=== PATIENT | male | born 1945 | race Caucasian/White ===

== ENCOUNTER 2020-10-01 16:16 | Observation (INO) ==
[2020-10-01 17:07] LABS: Basophils % 0.5 %; Eosinophils # 0.3 K/mcL (0.0-0.6); Eosinophils % 3.8 %; Hemoglobin 14.6 g/dL (12.9-16.9); Immature Granulocytes % 0.6 % (0-4); Lymphocytes # 1.3 K/mcL (0.6-4.6); Lymphocytes % 14.6 %; Mean Corpuscular HGB Conc 32.4 g/dL (31.6-35.5); Mean Corpuscular Hemoglobin 29.7 pg (28.0-33.3); Mean Corpuscular Volume 91.6 fL (83.0-100.0); Mean Platelet Volume 9.7 fL (9.4-12.4); Monocytes # 0.8 K/mcL (0.0-1.3); Monocytes % 8.6 %; Neutrophils # 6.3 K/mcL (1.6-8.9); Platelet Count 237 K/mcL (140-400); Red Blood Count 4.91 M/mcL (4.19-5.50); Red Cell Distribution Width 13.7 % (11.5-14.5); Segmented Neutrophils % 71.9 %; White Blood Count 8.7 K/mcL (4.3-11.1)
[2020-10-01] MEDS ORDERED: Ondansetron 4 MG/2 ML VIAL IVP ONE (17:07)
[2020-10-01] MEDS ORDERED: Ondansetron 4 MG/2 ML VIAL ONE (17:09)
[2020-10-01 17:27] LABS: Alanine Aminotransferase 26 Units/L (7-52); Albumin 3.9 g/dL (3.5-5.7); Albumin/Globulin Ratio 1.3 (1.1-2.2); Alkaline Phosphatase 84 Units/L (34-104); Aspartate Amino Transferase 24 Units/L (13-39); BUN/Creatinine Ratio 22 (6-26); Bilirubin,Direct 0.2 mg/dL (0.0-0.2); Bilirubin,Indirect 0.6 mg/dL (0.0-1.0); Bilirubin,Total 0.8 mg/dL (0.3-1.0); Blood Urea Nitrogen 23 mg/dL (8-23); Calcium 9.8 mg/dL (8.6-10.3); Carbon Dioxide 28 mEq/L (23-29); Chloride 102 mEq/L (98-107); Glucose 100 mg/dL (70-105); Lipase 10 Units/L (11-82); Osmolality,Calculated 290 (280-300); Sodium 138 mEq/L (136-145); Total Protein 6.9 g/dL (6.4-8.9); eGFR For African Americans > 60 (> 60); eGFR For Non-African Americans > 60 (> 60)
[2020-10-01] MEDS ORDERED: *HR* HYDROmorphone (PF) 1 MG/ML SYRINGE IVP ONE ×2 (17:30→19:01)
[2020-10-01] MEDS ORDERED: Isovue-370 500 ML BOTTLE IVP ONE (17:31)
[2020-10-01] MEDS ORDERED: 0.9 % Sodium Chloride 1,000 ML IV ONE (17:31)
[2020-10-01 19:07] LABS: Troponin I 0.03 ng/mL (< 0.04)
[2020-10-01 19:28] LABS: Bilirubin,Urine Negative (Negative); Blood,Urine Negative (Negative); Clarity,Urine Clear (Clear); Color,Urine Light-Yellow (Yellow); Glucose,Urine (UA) Normal (Normal); Ketones,Urine Trace mg/dL (Negative); Leukocyte Esterase,Urine Negative (Negative); Nitrite,Urine Negative (Negative); Protein,Urine Trace mg/dL (Neg-Trace); Specific Gravity,Urine > 1.030 (1.010-1.025); Urobilinogen,Urine Normal (Normal)
[2020-10-01] MEDS ORDERED: Naloxone 0.4 MG/ML INJ IVP PRN (21:16)
[2020-10-01] MEDS ORDERED: Ondansetron 4 MG/2 ML VIAL IVP PRN (21:50)
[2020-10-01] MEDS ORDERED: Simethicone 80 MG TAB.CHEW PO ONE (21:54)
[2020-10-01] MEDS ORDERED: *HR* Promethazine 25 MG/ML VIAL IM ONE (21:54)
[2020-10-02] MEDS ORDERED: Milk and Molasses Enema 200 ML RC ONE (01:07)
[2020-10-02 05:19] LABS: Hematocrit 47.1 % (37.5-50.1); Hemoglobin 14.7 g/dL (12.9-16.9); Mean Corpuscular HGB Conc 31.2 g/dL (31.6-35.5); Mean Corpuscular Hemoglobin 28.8 pg (28.0-33.3); Mean Corpuscular Volume 92.2 fL (83.0-100.0); Platelet Count 250 K/mcL (140-400); Red Blood Count 5.11 M/mcL (4.19-5.50); Red Cell Distribution Width 13.6 % (11.5-14.5)
[2020-10-02 05:37] LABS: BUN/Creatinine Ratio 21 (6-26); Blood Urea Nitrogen 21 mg/dL (8-23); Calcium 9.8 mg/dL (8.6-10.3); Carbon Dioxide 25 mEq/L (23-29); Chloride 100 mEq/L (98-107); Glucose 126 mg/dL (70-105); Osmolality,Calculated 285 (280-300); Potassium 3.9 mEq/L (3.5-5.1); Sodium 135 mEq/L (136-145); eGFR For African Americans > 60 (> 60); eGFR For Non-African Americans > 60 (> 60)
[2020-10-02] MEDS ORDERED: Simethicone 80 MG TAB.CHEW PO PRN (08:00)
[2020-10-02] MEDS ORDERED: Pantoprazole 40 MG VIAL IVP SCH (09:30)
[2020-10-02] MEDS: Ketorolac 15 MG/ML VIAL IVP PRN ×2 (09:35→17:40)
[2020-10-02] MEDS: Simethicone 80 MG TAB.CHEW PO SCH ×3 (09:36→22:51)
[2020-10-02] MEDS ORDERED: *HR* Propofol 200 MG/20 ML VIAL IVP ONE (22:00)
[2020-10-02] MEDS ORDERED: Lidocaine -MPF 2% 5 ML VIAL SQ ONE (22:00)
[2020-10-02] MEDS ORDERED: Ondansetron 4 MG/2 ML VIAL IVP ONE (22:00)
[2020-10-02] MEDS: Apixaban 5 MG TABLET PO SCH (22:51)
[2020-10-03 02:42] LABS: Hematocrit 43.8 % (37.5-50.1); Mean Corpuscular Hemoglobin 29.4 pg (28.0-33.3); Mean Platelet Volume 10.1 fL (9.4-12.4); Platelet Count 240 K/mcL (140-400); Red Blood Count 4.76 M/mcL (4.19-5.50); White Blood Count 9.4 K/mcL (4.3-11.1)
[2020-10-03 03:06] LABS: BUN/Creatinine Ratio 21 (6-26); Blood Urea Nitrogen 22 mg/dL (8-23); Calcium 9.3 mg/dL (8.6-10.3); Carbon Dioxide 24 mEq/L (23-29); Chloride 102 mEq/L (98-107); Glucose 96 mg/dL (70-105); Osmolality,Calculated 285 (280-300); Potassium 3.9 mEq/L (3.5-5.1); Sodium 136 mEq/L (136-145); eGFR For African Americans > 60 (> 60); eGFR For Non-African Americans > 60 (> 60)
[2020-10-03 07:12] VITALS: BP 161/78
[2020-10-03] MEDS ORDERED: lisinopriL 20 MG TABLET PO SCH (09:00)
[2020-10-03] MEDS ORDERED: hydroCHLOROthiazide 25 MG TABLET PO SCH (09:00)
[2020-10-03] MEDS ORDERED: Multivit/Ca/Min/Fe/FA 1 TAB TABLET PO SCH (09:00)
[2020-10-03] MEDS ORDERED: amLODIPine 5 MG TABLET PO SCH (09:00)
[2020-10-03] MEDS: Simethicone 80 MG TAB.CHEW PO SCH (09:05)
[2020-10-03] MEDS: Apixaban 5 MG TABLET PO SCH (09:05)
== END 2020-10-03 14:16 | disposition home or self-care (01) ==
LOC: 3NENU 16:16 → EMEROOARM 16:16 → SUATTDRO 21:59 → 3NENU 22:30
PROVIDERS: ADMIT Student in an Organized Health Care Education/Training Program; ATTEND Family Medicine